=== PATIENT | male | born 1975 | race Caucasian/White ===

== ENCOUNTER 2017-01-01 06:43 | Inpatient (IN) | payer OTHER ==
[2016-12-18 13:23] VITALS: Ht 165.1 cm; Wt 85.6 kg
--- NOTE | 2016-12-18 14:37 | DIAGNOSTIC IMAGING REPORT ---
CHEST PREADMISSION(PA/LAT) CLINICAL HISTORY: 41 years-old Male presenting with preoperative assessment. TECHNIQUE: PA and lateral views of the chest were obtained. COMPARISON: None. FINDINGS: Cardiomediastinal silhouette normal. Minimal vague opacities at the lung bases, right greater than left. No other focal infiltrate. No effusion or pneumothorax. Osseous structures normal. Cholecystectomy clips. IMPRESSION: 1. Bibasilar atelectasis suspected, right greater than left. Electronically signed by: Kingsley Omalley M.D. 12/18/2016 2:36 PM Dictated Date/Time: 12/18/2016 2:34 PM
[2016-12-18 14:56] LABS: BASO % 0.5 %; BASO ABS # 0.05 K/uL (0-0.2); COMPLETE YES; HEMATOCRIT 47.1 % (42-52); IG% 0.3 %; LYMPH % 31.1 %; LYMPH ABS # 3.34 K/uL (1.2-3.4); MEAN CELL VOLUME 89.2 fL (80-100); MEAN CORPUSCULAR HEMOGLOBIN 31.1 pg (25-34); MEAN CORPUSCULAR HGB CONC 34.8 g/dl (32-36); MEAN PLATELET VOLUME 9.8 fL (7.4-10.4); MONO % 7.2 %; NEUT % 58.9 %; PLATELET COUNT 306 K/uL (130-400); RED BLOOD COUNT 5.28 M/uL (4.7-6.1); WHITE BLOOD COUNT 10.73 K/uL (4.8-10.8)
[2016-12-18 17:30] LABS: BUN/CREATININE RATIO 16.7 (10-20); CALCIUM 8.4 mg/dl (8.5-10.1); CREATININE 0.87 mg/dl (0.60-1.40); POTASSIUM 3.9 mmol/L (3.5-5.1)
[2016-12-20 09:44] LABS: URINE APPEARANCE CLEAR (CLEAR); URINE BILIRUBIN NEG (NEG); URINE COLOR YELLOW; URINE EPITHELIAL CELL AUTO 0-5 /lpf (0-5); URINE NITRITE NEG (NEG); URINE SPECIFIC GRAVITY 1.025 (1.000-1.030); UROBILINOGEN NEG (NEG)
[2016-12-20 09:55] LABS: MANUAL MICROSCOPIC REQUIRED? NO; REVIEW REQ? NO
[~2017-01-01] VITALS: Ht 165.1 cm; Wt 85.6 kg
[2017-01-01] VITALS (10 sets, daily range): BP systolic 115–152; BP diastolic 65–93; PULSE 63–91; TEMP 36.6–36.8; O2SAT 91–96
[~2017-01-01 06:43] MED LIST: LACTATED RINGER'S 1000ML 1,000 ML IV SCH
[2017-01-01] MEDS ORDERED: MIDAZOLAM HCL 1 MG/ML 2ML VIAL ONE (06:58)
[2017-01-01] MEDS ORDERED: FENTANYL CITRATE INJ 50 MCG/1 ML 2 ML VIAL ONE ×2 (06:58→07:00)
[2017-01-01] MEDS ORDERED: ONDANSETRON INJ 2 MG/ML 2 ML VIAL ONE ×2 (06:59→10:26)
[2017-01-01] MEDS ORDERED: PROPOFOL IV EMULSION 10 MG/ML 20 ML VIAL IV ONE ×2 (06:59→10:26)
[2017-01-01] MEDS ORDERED: ROCURONIUM BROMIDE 10 MG/ML 5 ML VIAL IV ONE ×6 (06:59→10:28)
[2017-01-01] MEDS ORDERED: LIDOCAINE HCL 2% 2 ML VIAL (20MG/ML) ONE (06:59)
[2017-01-01] MEDS ORDERED: NEOSTIGMINE METHYLSULFATE 5 MG/5 ML SYR ONE (07:00)
[2017-01-01] MEDS ORDERED: DEXAMETHASONE SOD INJ 4 MG/ML VIAL ONE (07:00)
[2017-01-01] MEDS ORDERED: GLYCOPYRROLATE INJ 0.2 MG/ML VIAL ONE (07:00)
[2017-01-01] MEDS ORDERED: GELATIN SPONGE SZ 100 ONE (07:07)
[2017-01-01] MEDS ORDERED: BUPIVACAINE 0.5 % 5 MG/1 ML MPF 30ML VIAL ONE (07:07)
--- NOTE | 2017-01-01 07:14 | History & Physical Bridge Note ---
H&P Re-Evaluation Bridge Note: I have examined the patient, reviewed the History & Physical and in the interval since the performance of the History & Physical I have noted the following changes of clinical significance: No changes noted
[2017-01-01] MEDS: CEFAZOLIN 2000MG IV PUSH 10 ML IV SCH ×2 (07:33→10:52)
[2017-01-01] MEDS ORDERED: MANNITOL 25% 50 ML VIAL ONE ×2 (09:20→09:22)
[2017-01-01] MEDS ORDERED: FLOSEAL HEMOSTATIC MATRIX 10ML TOP ONE (09:36)
[2017-01-01] MEDS ORDERED: TISSEEL FIBRIN SEALANT 10ML TOP ONE (09:36)
[2017-01-01] MEDS ORDERED: SURGICEL ABSORB HEMOSTAT 2IN X 14IN TOP ONE (09:36)
[2017-01-01] MEDS ORDERED: HYDROmorphone INJ 2 MG/ML SYR/VIAL ONE (10:22)
[2017-01-01] MEDS ORDERED: OXYCODONE/ACETAMINOPHEN 7.5-325 TAB PO PRN (11:00)
[2017-01-01] MEDS ORDERED: HYDROmorphone INJ 1 MG/ML SYR IV PRN ×2 (11:00→11:45)
[2017-01-01] MEDS ORDERED: DOCU-94 PO (11:05)
[2017-01-01] MEDS ORDERED: OXYC7.5T65 PO (11:05)
--- NOTE | 2017-01-01 11:08 | Discharge Instructions ---
Discharge Instructions Date of Service Jan 01, 2017. Admission Reason for Admission: Right Renal Mass; Pre Op Discharge Discharge Diagnosis / Problem: Right renal mass Discharge Goals Goal(s): Decrease discomfort, Improve disease control, Therapeutic intervention Activity Recommendations Activity Limitations: per Instructions/Follow-up section Shower/Bathe: tomorrow 1. Do not lift >15lbs x 6 weeks. 2. No heavy exercise x 6 weeks. You may engage in light activity such as walking and stairs as tolerated. 3. Do not drive x [address] while taking narcotics. 4. Follow-up as scheduled. Please call our office at [phone] if you need to reschedule for any reason. . . Current Hospital Diet Patient's current hospital diet: Clear Liquid Diet Discharge Diet Recommended Diet: Regular Diet Procedures Procedures Performed: Right Laparoscopic Partial Nephrectomy DaVinci Pending Studies Studies pending at discharge: yes (right renal mass) List of pending studies: right renal mass Medical Emergencies . Who to Call and When: Medical Emergencies: If at any time you feel your situation is an emergency, please call 911 immediately. . Non-Emergent Contact Non-Emergency issues call your: Urologist Call Non-Emergent contact if: temperature is above 101.5, your pain is not controlled, your pain is worsening, your pain is unusual for you, your pain is concerning you, wound has increased drainage, wound has increased redness, wound has increased pain, you have any medication questions . . "Provider Documentation" section prepared by Alix Louise. . VTE Core Measure Inpt VTE Proph given/why not?: SCD's [place] Drug Monitoring Program Search Results: patient reviewed within database, no issues identified
--- NOTE | 2017-01-01 11:22 | [facility] Operative Report ---
Operative Report Operative Date Jan 01, 2017. Pre-Operative Diagnosis Right renal mass, 3.4 x 2.8 cm Post-Operative Diagnosis Right renal mass, 3.4 x 2.8 cm Procedure(s) Performed Right Robot Assisted Laparoscopic Partial Nephrectomy Surgeon Dr. Rivas Escobar MD Agency Sales Development Associate Surgeon(s) Alix Louise RN,SANITATION INSPECTOR and Dr. Angus Norman MD Estimated Blood Loss 60 mL Findings Excellent hemostasis after completion, defect closed in 2 layers, no violation of capsule of tumor on careful inspection 25 minutes warm ischemia time. UOP 400 cc Fluids 3500 cc Specimens Permanent specimens A: Deep margin, right kidney mass B: Right renal mass C: Lateral margin, right kidney mass Drains #10 TAMAR drain RLQ, maciel to gravity Anesthesia GAET + local Complication(s) None Disposition Recovery Room / PACU Indications 41 yo male found to have a right midpole posterior renal mass, 3.4 cm in greatest diameter, enhancing on renal mass protocol MRI of the abdomen and pelvis found this past summer incidentally on abdominal imaging. His lesion is felt to be suspicious for renal cell carcinoma. He is here today for attempted nephron sparing surgery diminishes disease. Please see H&P for further details. Intravenous antibiotics are provided for coverage and SCDs used for DVT prophylaxis. Informed consent reviewed in the chart preoperatively today. Description of Procedure Patient was properly identified and brought into the operative suite after identification of appropriate consent in the chart. General anesthesia with endotracheal intubation was initiated and patient was prepped and draped in the standard fashion for this procedure. Full timeout procedure was followed. Patient was placed in a gentle left flank up position with the table flexed and an arm in a well-padded mohan. All pressure points were noted to be padded and axillary roll was used. A 12 mm port was made in the lower abdomen in the midclavicular line and abdomen was entered under direct visualization using a visual obturator and a 0 lens. Abdomen was insufflated to 15 mmHg noted to be free of any injury at the time of initial ports placement. Ports were placed including 2 7 mm robotic ports, 2 12 mm refinery operator assistant ports and a 5 mm liver retractor port after visualization of the position of the liver. Assistants were present in the operating room to help with visualization of the kidney, passage of instruments, clamping of the renal hilum another patient safety related delicate tasks including the handling of delicate tissues including the renal vein and artery as well as the IVC. After the ports were placed the robot was brought in and docked with a 30 down lens. Fenestrated bipolar was used on the left-hand side and hot scissors on the right-hand side. Lateral aspect of the colon was dropped along the white line of Toldt. Patient was noted to have a superior location to the appendix which was avoided in the caudad dissection. Some old scarring at the level of the liver consistent with the patient's previous cholecystectomy was noted. Liver was able to be adequately freed to allow for retraction with a locking grasper attached to the diaphragm via the 5 mm cephalad port. Psoas muscle was identified as well as the IVC and gonadal vein. Using lateral traction on the kidney dissection was carried cephalad until the renal hilum was identified. As noted on imaging a single renal artery and renal vein was present. These were skeletonized and completely circumscribed to allow for clamping at the time of partial nephrectomy. No other variations in anatomy were appreciated. Patient was noted to have well-defined Gerona's fascia and fat. This was incised and dissection was carried along the level of the renal capsule until the kidney was completely freed and mobile within the right retroperitoneum and abdomen seen the location of the tumor. Using intraoperative ultrasound the extent of the renal tumor was mapped out by scoring the surface of the kidney. Well- defined renal tumor was well appreciated on intraoperative ultrasound. In the posterior aspect of the kidney the tumor could be well visualized on the surface of the renal capsule. After the kidney tumor was completely circumscribed and defined mannitol flush was provided and 2 clamps were placed on the renal artery as well as one clamp on the renal vein. Using cold scissors dissection was carried out around the renal tumor as previously mapped and defined. Great care was taken to ensure that no tumor material or capsule was traversed. Capsule was encountered in a couple of locations and noted to be intact, well-defined and circumscribed. After the tumor was dissected free the deep layer was closed using a 2-0 running Vicryl anchored with Weck clips and LaparaTys outside the renal capsule. The renal parenchyma was closed using a V lock suture with Weck clip pledgets. These were tightened over the course of the procedure to assist with closure of the renal defect. After this was complete the vascular clamps were removed for a total of 25 minutes of warm ischemia time. Some mild bleeding from the parenchyma was controlled using some additional compressive sutures followed by hemostatic materials in the form of FloSeal, Surgicel and Tisseel. A second mannitol flush was provided after removal of the clamps. After hemostasis was ensured Gerona's fascia was closed using a running 2-0 Vicryl suture. FloSeal was additionally placed at the level of the renal hilum. Tumor was placed within an Endo Catch bag which was removed from the inferior most 12 mm port at the end of the case. A #10 flat TAMAR drain was brought in via the inferior most robotic port and placed in the right paracolic gutter prior to closure. Robot was de-docked and ports were removed. Excess carbon dioxide gas was removed from the abdominal cavity. 12 mm port was enlarged to allow for removal of the specimen bag. This was then closed using an 0 Vicryl suture on a UR 5 needle. 2-0 silk was used to secure the drain in place and skin incisions were closed using 4-0 Monocryl and Dermabond. Anesthesia was reversed patient was transferred to the recovery room in stable condition. Follow-up care: Patient will be admitted to the floor for standard postoperative management. I attest to the content of the Intraoperative Record and any orders documented therein. Any exceptions are noted below.
[2017-01-01] MEDS ORDERED: FENTANYL CITRATE INJ 50 MCG/1 ML 2 ML VIAL IV PRN (11:45)
[2017-01-01] MEDS ORDERED: LABETALOL HCL IV 5 MG/ML 20ML IV PRN (11:45)
[2017-01-01] MEDS ORDERED: MEPERIDINE HCL 25 MG/ML CARP IV PRN (11:45)
[2017-01-01] MEDS ORDERED: EpHEDrine SULFATE INJ 50 MG/ML AMP IV PRN (11:45)
[2017-01-01] MEDS ORDERED: ATROPINE SULFATE 0.1 MG/ML 5ML SYR IV PRN (11:45)
[2017-01-01] MEDS ORDERED: ONDANSETRON INJ 2 MG/ML 2 ML VIAL IV PRN (11:45)
[2017-01-01 11:56] LABS: HEMATOCRIT 44.3 % (42-52); MEAN CELL VOLUME 89.9 fL (80-100); MEAN CORPUSCULAR HEMOGLOBIN 30.8 pg (25-34); MEAN PLATELET VOLUME 9.1 fL (7.4-10.4); PLATELET COUNT 318 K/uL (130-400); RED BLOOD COUNT 4.93 M/uL (4.7-6.1); WHITE BLOOD COUNT 19.12 K/uL (4.8-10.8)
--- NOTE | 2017-01-01 12:12 | Anesthesiology Progress Note ---
Anesthesia Post Op Note Date & Time Jan 01, 2017 at 12:11 Vital Signs Pain Intensity: 0 Vital Signs Past 12 Hours Date Time Temp Pulse Resp B/P (MAP) Pulse Ox O2 Delivery O2 Flow Rate FiO2 01/01/17 12:00 37.0 79 14 128/73 93 Nasal Cannula 4 01/01/17 11:55 66 14 138/67 93 Nasal Cannula 4 01/01/17 11:45 68 14 124/75 92 Oxymask 10 01/01/17 11:35 71 14 131/74 95 Oxymask 10 01/01/17 11:25 36.6 95 14 148/77 93 Oxymask 10 01/01/17 07:02 36.6 91 20 118/93 94 Room Air Notes Mental Status: alert / awake / arousable, participated in evaluation Pt Amnestic to Procedure: Yes Nausea / Vomiting: adequately controlled Pain: adequately controlled Airway Patency, RR, SpO2: stable & adequate BP & HR: stable & adequate Hydration State: stable & adequate Anesthetic Complications: no major complications apparent
[2017-01-01 12:20] LABS: MEAN CORPUSCULAR HGB CONC 34.3 g/dl (32-36)
[2017-01-01 12:22] LABS: BUN/CREATININE RATIO 9.7 (10-20); CREATININE 1.13 mg/dl (0.60-1.40); POTASSIUM 4.6 mmol/L (3.5-5.1)
[2017-01-01] MEDS: LACTATED RINGER'S 1000ML 1,000 ML IV SCH ×2 (14:39→20:59)
[2017-01-01] MEDS: ACETAMINOPHEN 500 MG TAB PO SCH ×2 (18:00→23:35)
[2017-01-01] MEDS: CEFAZOLIN IV 2,000 MG in SYRINGE 0 ML IV SCH (19:16)
[2017-01-01] MEDS: ONDANSETRON INJ 2 MG/ML 2 ML VIAL IV PRN (19:23)
[2017-01-01] MEDS: DOCUSATE SODIUM 100 MG CAP PO SCH (20:59)
[2017-01-02] VITALS (12 sets, daily range): BP systolic 130–146; BP diastolic 76–85; PULSE 68–90; TEMP 36.7–36.8; O2SAT 73–95
[2017-01-02] MEDS: CEFAZOLIN IV 2,000 MG in SYRINGE 0 ML IV SCH ×2 (02:57→10:59)
[2017-01-02] MEDS: LACTATED RINGER'S 1000ML 1,000 ML IV SCH ×2 (02:57→07:47)
[2017-01-02] MEDS: ONDANSETRON INJ 2 MG/ML 2 ML VIAL IV PRN (03:15)
[2017-01-02] MEDS: ACETAMINOPHEN 500 MG TAB PO SCH ×2 (05:27→12:25)
[2017-01-02 08:32] LABS: BASO % 0.2 %; BASO ABS # 0.02 K/uL (0-0.2); COMPLETE YES; EOS % 0.2 %; HEMATOCRIT 42.3 % (42-52); IG% 0.2 %; LYMPH % 20.5 %; LYMPH ABS # 2.47 K/uL (1.2-3.4); MEAN CORPUSCULAR HEMOGLOBIN 30.9 pg (25-34); MEAN CORPUSCULAR HGB CONC 34.3 g/dl (32-36); MEAN PLATELET VOLUME 9.2 fL (7.4-10.4); MONO % 10.8 %; NEUT % 68.1 %; PLATELET COUNT 280 K/uL (130-400); WHITE BLOOD COUNT 12.05 K/uL (4.8-10.8)
--- NOTE | 2017-01-02 08:33 | Progress Note ---
Subjective Date of Service: Jan 02, 2017. Subjective Pt evaluation today including: conversation w/ patient, physical exam, chart review, lab review, review of inpatient medication list Pain: Maciel discomfort, abdomina pain 02/20 PO Intake: Anyi clears, emesis yesterday Voiding: maciel catheter in place (urine clear) 41 yo male POD#1 s/p R robotic partial nephrectomy. He notes his biggest complaint is the maciel which he feels is driving him "insane." He has been ambulatory, some emesis yesterday now improved, taking clears. No other specific complaints, abdominal discomfort at surgical site minimal. AM labs pending, yesterday's labs wnl postop, slight bump in Cr. Review of Systems Constitutional: No fever, No chills Eyes: No worsening of vision ENT: No hearing loss Respiratory: No cough, No shortness of breath Cardiac: No chest pain Abdomen: + pain, + nausea, No diarrhea Male : + see HPI, No hematuria Neurologic: No memory loss, No paralysis Psychiatric: No depression symptoms Skin: No new/changing skin lesions Objective Vital Signs Date Time Temp Pulse Resp B/P (MAP) Pulse Ox O2 Delivery O2 Flow Rate FiO2 01/02/17 07:54 92 Nasal Cannula 1.0 01/02/17 07:52 36.8 81 21 136/78 (97) 92 Nasal Cannula 1.0 01/02/17 03:00 36.7 80 14 136/76 (96) 93 Nasal Cannula 4.0 01/01/17 23:26 Nasal Cannula 4.0 01/01/17 23:06 36.8 72 16 142/75 (97) 94 Room Air 01/01/17 19:09 36.8 63 18 152/81 (104) 96 Nasal Cannula 4.0 01/01/17 15:35 93 Nasal Cannula 4.0 01/01/17 15:20 36.8 74 18 132/79 (96) 93 Nasal Cannula 2.0 01/01/17 14:58 36.7 77 18 120/69 (86) 93 Nasal Cannula 4.0 01/01/17 14:24 36.8 80 19 124/78 (93) 94 Nasal Cannula 4.0 01/01/17 13:20 36.7 82 19 138/70 (92) 92 Nasal Cannula 4.0 01/01/17 12:50 36.6 68 19 115/65 (82) 91 Nasal Cannula 4.0 01/01/17 12:20 36.8 65 16 119/67 (84) 92 Nasal Cannula 4.0 01/01/17 12:20 92 Nasal Cannula 4.0 01/01/17 12:20 92 Nasal Cannula 4.0 01/01/17 12:00 37.0 79 14 128/73 93 Nasal Cannula 4 01/01/17 11:55 66 14 138/67 93 Nasal Cannula 4 01/01/17 11:45 68 14 124/75 92 Oxymask 10 01/01/17 11:35 71 14 131/74 95 Oxymask 10 01/01/17 11:25 36.6 95 14 148/77 93 Oxymask 10 Physical Exam General Appearance: WD/WN, no apparent distress ENT: normal ENT inspection, hearing grossly normal Neck: supple, no adenopathy Respiratory/Chest: no respiratory distress, no accessory muscle use Cardiovascular: no JVD Abdomen: non tender, soft, + pertinent finding (inc c/d/i with Dermabond) Extremities: non-tender Neurologic/Psychiatric: alert, oriented x 3 Skin: normal color Laboratory Results Last 24 Hours Test 01/01/17 11:28 01/02/17 07:53 White Blood Count 19.12 K/uL Red Blood Count 4.93 M/uL Hemoglobin 15.2 g/dL Hematocrit 44.3 % Mean Corpuscular Volume 89.9 fL Mean Corpuscular Hemoglobin 30.8 pg Mean Corpuscular Hemoglobin Concent 34.3 g/dl RDW Standard Deviation 42.1 fL RDW Coefficient of Variation 13.0 % Platelet Count 318 K/uL Mean Platelet Volume 9.1 fL Sodium Level 136 mmol/L Potassium Level 4.6 mmol/L Chloride Level 104 mmol/L Carbon Dioxide Level 27 mmol/L Anion Gap 5.0 mmol/L Blood Urea Nitrogen 11 mg/dl Creatinine 1.13 mg/dl Est Creatinine Clear Calc Drug Dose 87.4 ml/min Estimated GFR () 93.7 Estimated GFR (Non- 80.9 BUN/Creatinine Ratio 9.7 Random Glucose 114 mg/dl Calcium Level 8.0 mg/dl Assessment and Plan A/P 41 yo male POD#1 s/p R robotic partial nephrectomy. MIRTA maciel, will monitor TAMAR output after removed. Advance diet and activity. As discussed with patient if he does well with activity can consider DC home this PM. If he is still limited, will keep until tomorrow. DC instructions reviewed including activity limitations on DC home. Discharge planning: home
[2017-01-02] MEDS: DOCUSATE SODIUM 100 MG CAP PO SCH (08:40)
[2017-01-02 09:11] LABS: BUN/CREATININE RATIO 8.7 (10-20); CALCIUM 8.6 mg/dl (8.5-10.1); CREATININE 1.38 mg/dl (0.60-1.40); POTASSIUM 4.3 mmol/L (3.5-5.1)
--- NOTE | 2017-01-02 10:40 | Anesthesiology Progress Note ---
Anesthesia Post Op Note Date & Time Jan 02, 2017 at 10:39 Vital Signs Vital Signs Past 12 Hours Date Time Temp Pulse Resp B/P (MAP) Pulse Ox O2 Delivery O2 Flow Rate FiO2 01/02/17 09:11 93 Nasal Cannula 1.0 01/02/17 09:10 73 Room Air 01/02/17 07:54 92 Nasal Cannula 1.0 01/02/17 07:52 36.8 81 21 136/78 (97) 92 Nasal Cannula 1.0 01/02/17 07:20 93 Nasal Cannula 1.0 01/02/17 07:10 88 Room Air 01/02/17 03:00 36.7 80 14 136/76 (96) 93 Nasal Cannula 4.0 01/01/17 23:26 Nasal Cannula 4.0 01/01/17 23:06 36.8 72 16 142/75 (97) 94 Room Air Notes Mental Status: alert / awake / arousable, participated in evaluation Pt Amnestic to Procedure: Yes Nausea / Vomiting: adequately controlled Pain: adequately controlled Airway Patency, RR, SpO2: stable & adequate BP & HR: stable & adequate Hydration State: stable & adequate Anesthetic Complications: no major complications apparent
--- NOTE | 2017-01-02 14:30 | DIAGNOSTIC IMAGING REPORT ---
CHEST 2 VIEWS ROUTINE HISTORY: Hypoxia COMPARISON: Chest 12/18/2016. FINDINGS: There are low lung volumes. The heart is stable in size. No pneumothorax. The upper lung zones are clear. Bibasilar airspace opacities have progressed. This includes a new 3.7 cm lobular density at the base the right lung. Cholecystectomy. No evidence for pulmonary edema. Trace bilateral pleural effusions. IMPRESSION: 1. Progression of the bibasilar densities. This could represent atelectasis or pneumonia. 2. Trace bilateral pleural effusions. 3. There is a new lobular density at the base the right lower lobe which is not confirmed on the lateral view. Therefore, this could be due to fluid within the right major fissure. Electronically signed by: Mike Sawant M.D. 01/02/2017 2:28 PM Dictated Date/Time: 01/02/2017 2:26 PM
--- NOTE | 2017-01-02 17:39 | Progress Note ---
Progress Note Date of Service Jan 02, 2017. Progress Note Patient with some hypoxia during the day. CXR results noted - no pnemothorax, possible atelectasis vs. edema. By PM patient able to ambulate without O2 and improved sats, now in 90s after ambulation. No SOB or other symptoms. Will DC home, warned re: worrisome signs and symptoms. OP f/u as planned. HM
--- NOTE | 2017-01-11 08:36 | Discharge Summary ---
Discharge Summary Date of Service Jan 11, 2017. Discharge Summary Date of admission: January 01, 2017 Date of discharge: January 02, 2017 Admitting attending: Dr. Rivas Escobar Admitting diagnosis: Right renal mass Discharge diagnosis: Right renal mass. Procedures over the course of admission: Right robot assisted partial laparoscopic nephrectomy. Complications: None. Brief history: Patient is a pleasant 41-year-old male found as an outpatient to have a right renal mass, enhancing and suspicious for malignancy on axial imaging of the abdomen. Please see H&P for further details. After discussion of risks and benefits of various forms of management patient has decided upon a robot assisted laparoscopic partial nephrectomy to manage his disease. He is being admitted for surgical management. Hospital course: Patient underwent uncomplicated right robotic partial nephrectomy as planned. Please see operative report for further details. Patient was admitted to the floor for standard management and diet and activity were rapidly advanced. His hemoglobin remained stable throughout the admission and a small bump in his creatinine was noted consistent with some transient ischemia to his right kidney. By postoperative day 1. Patient was ambulatory in the hallways, tolerating regular diet and comfortable on oral pain medication. Minimal drain output was appreciated and TAMAR and Negron were removed postoperative day 1. Patient was considered stable for discharge home at this time. Discharge instructions: Please see discharge instruction sheet in medication sheet for further details. Activity limitations reviewed with patient prior to discharge home. Patient not cleared for heavy activity until he sees our service. Postoperative appointment for discussion of his pathologic results is confirmed.
--- NOTE | 2017-01-17 05:12 | EDITING REQUIRED CODING QUERY ---
PATHOLOGY To promote full compliance with coding requirements relating to patient care, physician participation is requested in all cases of dampener operator uncertainty. Please assist us with the question(s) below: Please review the Pathology report and please document any relevant diagnosis(es) below. Thank you. USAMA Lomas [facility] Diagnosis(es): Chromophobe renal cell carcinoma
== END 2017-01-02 18:30 | disposition home or self-care (01) | DRG 658 ==
LOC: C.ACU 06:43 → C.MSW 11:04 → ENRESERV 11:57
PROVIDERS: ADMIT Urology; ATTEND Urology
PROC: 8E0W4CZ Robotic Assisted Procedure of Trunk Region, Percutaneous Endoscopic Approach (ICD-10-PCS; principal; 2017-01-01 07:30)
PROC: 0TB04ZZ Excision of Right Kidney, Percutaneous Endoscopic Approach (ICD-10-PCS; principal; 2017-01-01 07:30)
DX: C64.1 Malignant neoplasm of right kidney, except renal pelvis (principal); Z80.1 Family history of malignant neoplasm of trachea, bronchus and lung; Z80.42 Family history of malignant neoplasm of prostate

== ENCOUNTER → 2017-04-26 | Outpatient (CLI) | payer BC ==
[~2017-04-26] MED LIST changes: -LACTATED RINGER'S 1000ML 1,000 ML IV SCH; +OXYC7.5T65 PO
[2017-04-26 12:41] LABS: ALBUMIN 3.4 gm/dl (3.4-5.0); ALT/SGPT 60 U/L (12-78); AST/SGOT 25 U/L (15-37); BLOOD UREA NITROGEN 14 mg/dl (7-18); CALCIUM 8.9 mg/dl (8.5-10.1); CARBON DIOXIDE 26 mmol/L (21-32); CREATININE 1.08 mg/dl (0.60-1.40); GLUCOSE 94 mg/dl (70-99); POTASSIUM 3.7 mmol/L (3.5-5.1); SODIUM 137 mmol/L (136-145)
[2017-04-26 12:43] LABS: ALKALINE PHOSPHATASE 98 U/L (45-117); TOTAL PROTEIN 7.6 gm/dl (6.4-8.2)
== END | disposition home or self-care (01) ==
LOC: C.LAB 09:31
PROVIDERS: ATTEND Urology
DX: C64.9 Malignant neoplasm of unspecified kidney, except renal pelvis (principal)

== ENCOUNTER → 2017-05-13 | Outpatient (CLI) | payer BC ==
[~2017-05-13] MED LIST changes: +OPTIRAY 320 IV PRN
--- NOTE | 2017-05-13 13:49 | DIAGNOSTIC IMAGING REPORT ---
CT SCAN OF THE ABDOMEN AND PELVIS WITH IV CONTRAST CLINICAL HISTORY: Chromophobe renal cell carcinoma. COMPARISON STUDY: Abdominal CT dated 07/15/2016 and 07/08/2015. Abdominal MRI dated 11/21/2016. TECHNIQUE: Following the IV administration of 94 cc of Optiray 320, CT scan of the abdomen and pelvis is performed from the lung bases to the proximal femora. Images are reviewed in the axial, sagittal, and coronal planes. IV contrast was administered without complication. A dose lowering technique was utilized adhering to the principles of ALARA. CT DOSE: 890.01 mGycm FINDINGS: Lung bases: The heart is normal in size and without pericardial effusion. There is bibasilar scarring versus atelectasis. No airspace consolidation or pleural effusion is identified. There is a 4 mm right lower lobe pulmonary nodule seen on image #17, and a 4 m nodule in the left lower lobe seen on image #46. A 3 mm pleural-based nodule is seen in the right lower lobe on image #27. These were clearly identified on the 07/08/2015 examination. Foci of pleural-based nodularity at the anterior right lung base are seen on image #27 and measure up to 5 mm. These have been present dating back to 2015. A calcified granuloma is also seen in the right middle lobe. Liver: The contrast-enhanced liver is enlarged, measuring 18.6 cm in length. The liver demonstrates diffusely diminished attenuation consistent with hepatic steatosis. There is no intrahepatic biliary ductal dilatation. The hepatic veins and portal veins are patent. Gallbladder: Surgically absent noting clips in the gallbladder fossa. Spleen: Normal in size and attenuation. Pancreas: Unremarkable. Adrenal glands: Unremarkable. Kidneys: The contrast enhanced kidneys are normal in size and without hydronephrosis. The kidneys enhance symmetrically. There are postoperative changes from right partial nephrectomy along the interpolar right kidney. No recurrent or residual enhancing renal mass lesion is suggested. There is a minimally complex fluid collection at this site which measures 2.9 x 1.7 cm as seen on image #156, likely representing a postoperative seroma/hematoma. No enhancing lesion is identified in the left kidney. Small left renal cysts measure up to 12 mm. Additional subcentimeter cortical hypodensities also likely represent cysts but are too small for definitive characterization. Abdominal vasculature: The abdominal aorta is normal in course and caliber noting mild atherosclerotic calcification. Bowel: The small bowel and colon are normal in course and caliber. The appendix is well-visualized and normal. Peritoneum: There is no intraperitoneal free air or abdominal ascites. There is a small fat-containing umbilical hernia. Lymphadenopathy: None. Pelvic viscera: The bladder, prostate, and seminal vesicles are normal as visualized. Skeletal structures: No lytic or blastic lesions are seen. IMPRESSION: 1. There are interval postoperative changes from right partial nephrectomy and tumor resection. No recurrent or residual enhancing mass lesion is identified at the operative site or in either kidney. 2. There is a small and minimally complex fluid collection along the resection margin measuring up to 2.9 cm. This likely represents postoperative change such as seroma/hematoma. Attention at follow-up is recommended. 3. There is no evidence of metastatic disease in the abdomen or pelvis. 4. There are pulmonary and pleural-based nodules at the lung bases. Several of these have increased in size from 07/15/2016 and the majority of these were not clearly seen on the 07/08/2015 examination. These are pathologically indeterminant, and attention at follow-up is recommended as metastatic disease is not excluded. 5. Hepatomegaly and hepatic steatosis. 6. Additional findings as above. Electronically signed by: Simon Valera M.D. 05/13/2017 1:47 PM Dictated Date/Time: 05/13/2017 1:33 PM
== END | disposition home or self-care (01) ==
LOC: C.CTS 13:00
PROVIDERS: ATTEND Urology
DX: C64.9 Malignant neoplasm of unspecified kidney, except renal pelvis (principal); R91.8 Other nonspecific abnormal finding of lung field; R16.0 Hepatomegaly, not elsewhere classified; K76.0 Fatty (change of) liver, not elsewhere classified